=== PATIENT | male | born 1990 | race Caucasian/White ===

== ENCOUNTER 2024-07-26 13:02 | Inpatient (IN) | payer OTHER ==
[~2024-07-26] VITALS: Ht 170.2 cm; Wt 82.9 kg
[2024-07-26] MEDS ORDERED: SODIUM CHLORIDE 0.9% 100 ML ONE (14:02)
[2024-07-26] MEDS ORDERED: IOHEXOL 350 MG/ML 100 ML VIAL ONE (14:02)
[2024-07-26 14:15] LABS: BASOPHILS % (AUTO) 0.3 % (0.0-2.0); EOSINOPHILS % (AUTO) 5.3 % (1.0-6.0); HEMOGLOBIN 14.8 g/dL (13.5-17.5); LYMPHOCYTES # (AUTO) 1.2 K/uL (1.0-4.8); LYMPHOCYTES % (AUTO) 26.6 % (22.0-44.0); MEAN CORPUSCULAR HEMOGLOBIN 31.7 pg (26.0-34.0); MEAN CORPUSCULAR HGB CONC 32.9 G/dL (31.0-37.0); MEAN CORPUSCULAR VOLUME 97 fL (80-100); MONOCYTES # (AUTO) 0.3 K/uL (0.1-1.0); MONOCYTES % (AUTO) 5.9 % (2.0-9.0); NEUTROPHILS # (AUTO) 2.8 K/uL (1.8-7.7); NEUTROPHILS % (AUTO) 61.9 % (40.0-70.0); PLATELET COUNT (AUTO) 203 K/uL (150-450); RED BLOOD CELL COUNT(AUTO) 4.67 MIL/uL (4.50-5.90); RED CELL DISTRIBUTION WIDTH 13.3 % (11.5-14.5); WHITE BLOOD COUNT (AUTO) 4.5 K/uL (4.5-11.0)
[2024-07-26 14:16] LABS: ANION GAP 7 mmol/L (8-16); CALCIUM, TOTAL 9.1 mg/dL (8.8-10.5); CARBON DIOXIDE 30 mmol/L (22-29); CHLORIDE 103 mmol/L (98-107); CREATININE 0.93 mg/dL (0.60-1.30); GLOMERULAR FILTR. RATE CALC > 60 mL/min (>60); GLUCOSE,RANDOM 93 mg/dL (70-110); LIPASE 17 U/L (16-77); POTASSIUM 4.2 mmol/L (3.5-5.1); SODIUM SERUM 140 mmol/L (136-145); UREA NITROGEN, BLOOD 8 mg/dL (7-18)
[2024-07-26 14:20] LABS: ALBUMIN 3.9 g/dL (3.4-5.0); BILIRUBIN,DIRECT 0.1 mg/dL (0.00-0.20); BILIRUBIN,TOTAL 0.4 mg/dL (0.1-1.0); TOTAL PROTEIN, SERUM 7.7 g/dL (6.4-8.2)
[2024-07-26] MEDS: SODIUM CHLORIDE 0.9% 1,000 ML IV ONE (15:11)
[2024-07-26] MEDS: MORPHINE SULFATE 2 MG/ML SYRINGE IVP ONE (15:11)
[2024-07-26 16:16] LABS: APPEARANCE,URINE CLEAR (CLEAR); BILIRUBIN,URINE NEGATIVE (NEGATIVE); COLOR,URINE COLORLESS (YELLOW); GLUCOSE, URINE (UA) NEGATIVE (NEGATIVE); KETONES,URINE NEGATIVE (NEGATIVE); LEUKOCYTE ESTERASE ,URINE NEGATIVE (NEGATIVE); NITRATE,URINE NEGATIVE (NEGATIVE); OCCULT BLOOD,URINE NEGATIVE (NEGATIVE); PROTEIN,URINE NEGATIVE (NEGATIVE); SPECIFIC GRAVITIY, URINE 1.011 (1.003-1.030); UROBILINOGEN,URINE <=1.0 mg/dL (<=1.0)
[2024-07-26 16:26] LABS: HCG,QUANTITATIVE < 1 mIU/mL (0-6)
[2024-07-26 17:00] VITALS: BP 117/64; PULSE 66; RESP 18; TEMP 98.3; O2SAT 99
[2024-07-26 20:00] VITALS: BP 124/75; PULSE 51; RESP 18; TEMP 98.2; O2SAT 99
[2024-07-26] MEDS: DOCUSATE SODIUM 100 MG CAPSULE PO SCH (21:00)
[2024-07-26] MEDS: MORPHINE SULFATE 2 MG/ML SYRINGE IVP PRN (21:32)
[2024-07-26 21:37] VITALS: BP 110/69; PULSE 64; RESP 18; O2SAT 99
[2024-07-27 05:32] VITALS: BP 131/89; PULSE 71; RESP 18; TEMP 97.9; O2SAT 99
[2024-07-27 08:08] VITALS: BP 139/48; PULSE 67; RESP 18; TEMP 98.5; O2SAT 96
[2024-07-27] MEDS: FAMOTIDINE 20 MG TABLET PO SCH (09:05)
[2024-07-27] MEDS: OxyCODONE HCL/ACETAMINOPHEN 5-325 MG TABLET PO PRN (09:05)
[2024-07-27] MEDS ORDERED: SODIUM CHLORIDE 0.9% 100 ML ONE (10:15)
[2024-07-27] MEDS ORDERED: IOHEXOL 350 MG/ML 100 ML VIAL ONE (10:15)
[2024-07-27] MEDS: ACETAMINOPHEN 325 MG TABLET PO PRN (16:18)
[2024-07-27 16:40] VITALS: BP 102/64; PULSE 64; RESP 18; TEMP 98.8; O2SAT 93
[2024-07-27 19:40] VITALS: BP 126/61; PULSE 95; RESP 18; TEMP 98.5; O2SAT 95
[2024-07-28 04:45] VITALS: BP 101/63; PULSE 59; RESP 18; TEMP 98.9; O2SAT 95
[2024-07-28 08:16] VITALS: BP 116/64; PULSE 57; RESP 18; TEMP 98.6; O2SAT 100
[2024-07-28] MEDS ORDERED: LIDOCAINE/PF 2% 5 ML SYRINGE IVP ONE (12:00)
[2024-07-28] MEDS ORDERED: METOPROLOL TARTRATE 5 MG/5 ML VIAL IVP ONE (12:00)
[2024-07-28] MEDS ORDERED: KETOROLAC TROMETHAMINE 60 MG/2 ML VIAL IM ONE (12:00)
[2024-07-28] MEDS ORDERED: FentaNYL CITRATE PF 100 MCG/2 ML VIAL IVP ONE (12:00)
[2024-07-28] MEDS ORDERED: ONDANSETRON HCL 4 MG/2 ML VIAL IVP ONE (12:00)
[2024-07-28] MEDS ORDERED: DEXAMETHASONE SOD PHOS 4 MG/ML VIAL IVP ONE (12:00)
[2024-07-28] MEDS ORDERED: SUGAMMADEX SODIUM 200 MG/2 ML VIAL IVP ONE (12:00)
[2024-07-28] MEDS ORDERED: ROCURONIUM BROMIDE 10 MG/ML 5 ML VIAL IVP ONE (12:00)
[2024-07-28] MEDS ORDERED: MIDAZOLAM HCL 2 MG/2 ML VIAL IVP ONE (12:00)
[2024-07-28] MEDS ORDERED: PROPOFOL 1% 20 ML VIAL IVP ONE (12:00)
[2024-07-28] MEDS ORDERED: RINGERS SOLUTION,LACTATED 1,000 ML IV ONE ×2 (12:57→14:54)
[2024-07-28] MEDS: ETHYL ALCOHOL 62% ANTISEPTIC NASAL SANITIZER 0.6 ML AMPUL NASAL ONE (13:15)
[2024-07-28] MEDS: CHLORHEXIDINE GLUCONATE 2% TOWELETTE [2'S/6'S] TP ONE (13:16)
[2024-07-28] MEDS: RINGERS SOLUTION,LACTATED 1,000 ML IV ONE (13:17)
[2024-07-28] MEDS: BUPIVACAINE 0.25%/EPI 1:200,000/PF 30 ML VIAL ONE (14:04)
[2024-07-28] MEDS: VANCOMYCIN HCL 1 GM VIAL ONE (14:05)
[2024-07-28] MEDS ORDERED: HYDROmorphone HCL 2 MG/ML SYRINGE IVP PRN ×2 (14:15→15:30)
[2024-07-28] MEDS ORDERED: MEPERIDINE-PF 25 MG/ML VIAL IVP PRN (14:15)
[2024-07-28] MEDS ORDERED: FentaNYL CITRATE PF 100 MCG/2 ML VIAL IVP PRN (14:15)
[2024-07-28 16:05] VITALS: BP 118/78; PULSE 87; RESP 17; TEMP 98.5; O2SAT 98
[2024-07-28] MEDS: IBUPROFEN 400 MG TABLET PO SCH (16:44)
[2024-07-28] MEDS: FAMOTIDINE 20 MG TABLET PO SCH (20:34)
[2024-07-28 20:45] VITALS: BP 102/57; PULSE 83; RESP 18; TEMP 98.3; O2SAT 96
[2024-07-29 05:31] VITALS: BP 113/67; PULSE 63; RESP 18; TEMP 98.3; O2SAT 100
[2024-07-29] MEDS: OXYGEN THERAPY IH SCH (08:00)
[2024-07-29 08:27] VITALS: BP 117/64; PULSE 59; RESP 18; TEMP 98.6; O2SAT 100
[2024-07-29] MEDS: HYDROCODONE/ACETAMINOPHEN 5-325 MG TABLET PO PRN (15:31)
[2024-07-29 19:35] VITALS: BP 132/74; PULSE 63; RESP 18; TEMP 98.4; O2SAT 99
[2024-07-30 04:45] VITALS: BP 114/69; PULSE 60; RESP 18; TEMP 98; O2SAT 98
[2024-07-30 08:25] VITALS: BP 107/79; PULSE 53; RESP 18; TEMP 98.3; O2SAT 100
[2024-07-30 11:24] LABS: BASOPHILS % (AUTO) 0.2 % (0.0-2.0); EOSINOPHILS % (AUTO) 2.6 % (1.0-6.0); HEMATOCRIT 43.7 % (41-53); HEMOGLOBIN 14.7 g/dL (13.5-17.5); LYMPHOCYTES # (AUTO) 1.1 K/uL (1.0-4.8); LYMPHOCYTES % (AUTO) 12.2 % (22.0-44.0); MEAN CORPUSCULAR HEMOGLOBIN 32.1 pg (26.0-34.0); MEAN CORPUSCULAR HGB CONC 33.5 G/dL (31.0-37.0); MEAN CORPUSCULAR VOLUME 96 fL (80-100); MONOCYTES # (AUTO) 0.6 K/uL (0.1-1.0); MONOCYTES % (AUTO) 6.9 % (2.0-9.0); NEUTROPHILS # (AUTO) 6.7 K/uL (1.8-7.7); NEUTROPHILS % (AUTO) 78.1 % (40.0-70.0); PLATELET COUNT (AUTO) 162 K/uL (150-450); RED BLOOD CELL COUNT(AUTO) 4.57 MIL/uL (4.50-5.90); RED CELL DISTRIBUTION WIDTH 13.2 % (11.5-14.5); WHITE BLOOD COUNT (AUTO) 8.6 K/uL (4.5-11.0)
[2024-07-30 11:32] LABS: ANION GAP 4 mmol/L (8-16); CALCIUM, TOTAL 8.9 mg/dL (8.8-10.5); CARBON DIOXIDE 32 mmol/L (22-29); CHLORIDE 103 mmol/L (98-107); CREATININE 0.89 mg/dL (0.60-1.30); GLOMERULAR FILTR. RATE CALC > 60 mL/min (>60); GLUCOSE,RANDOM 111 mg/dL (70-110); POTASSIUM 4.1 mmol/L (3.5-5.1); SODIUM SERUM 139 mmol/L (136-145); UREA NITROGEN, BLOOD 13 mg/dL (7-18)
[2024-07-30] MEDS: MAGNESIUM HYDROXIDE SUSPENSION 30 ML UDCUP PO PRN (15:38)
[2024-07-30 20:14] VITALS: BP 128/69; PULSE 70; RESP 20; TEMP 98.2; O2SAT 98
[2024-07-31 05:03] VITALS: BP 112/52; PULSE 58; RESP 18; TEMP 97.9; O2SAT 100
[2024-07-31 09:22] VITALS: BP 122/47; PULSE 65; RESP 18; TEMP 98.5; O2SAT 99
[2024-07-31 19:39] VITALS: BP 114/70; PULSE 72; RESP 18; TEMP 98.5; O2SAT 98
[2024-08-01 04:35] VITALS: BP 101/71; PULSE 60; RESP 18; TEMP 97.7; O2SAT 98
[2024-08-01 07:50] VITALS: BP 123/72; PULSE 60; RESP 18; TEMP 98.2; O2SAT 100
[2024-08-01] MEDS ORDERED: IBUP-1506 PO (13:05)
[2024-08-01] MEDS ORDERED: ACET-2247 PO (13:06)
== END 2024-08-01 17:15 | DRG 352 ==
LOC: EMS 13:02 → EDH 14:28 → 6N 17:50
PROVIDERS: ADMIT Internal Medicine; ATTEND Internal Medicine
PROC: 0YU50JZ Supplement Right Inguinal Region with Synthetic Substitute, Open Approach (ICD-10-PCS; principal; 2024-07-28 13:30)
DX: K40.90 Unilateral inguinal hernia, without obstruction or gangrene, not specified as recurrent (principal); K76.0 Fatty (change of) liver, not elsewhere classified; N50.89 Other specified disorders of the male genital organs
CPT/HCPCS: 71260; 74177; 76870; 80048; 80076; 81003; 82105; 83690; 84702; 85025; 87081; 88302; 96361; 96374; 97116; 97162; 97530; 99285; J1100; J1885; J2250; J2270; J2405; J2704; J3010; J3370; J3490; J7050; J7120; 36415-L1; 36415-TC